=== PATIENT | female | born 1945 | race Caucasian/White ===

== ENCOUNTER 2016-12-15 09:30 | Emergency (ER) | payer MEDICARE, OTHER ==
[~2016-12-15 09:30] MED LIST: CLARITIN10 M2 PO; MIRALAX17 G1 PO; PRILOSEC20 MG PO; SYNTHROID75 MCG PO
[2016-12-15] MEDS ORDERED: BENZONATATE200 M1 PO (09:33)
[2016-12-15] MEDS ORDERED: SYNTHROID50 MC1 PO (09:34)
[2016-12-15] MEDS ORDERED: SYNTHROID125 MC1 PO (10:50)
[2016-12-15] MEDS ORDERED: ZYRTEC10 M7 PO (10:51)
[2016-12-15] MEDS ORDERED: CLARITIN10 M6 PO (10:51)
[2016-12-15 11:32] LABS: BASO % 0.1 % (0-2); EOS % 0.6 % (0-7); HCT-HEMATOCRIT 40.6 % (34.0-49.0); HGB-HEMOGLOBIN 13.4 gm/dl (12.0-15.5); LYMPH % 14.3 % (20-45); MCH (MEAN CORPUSCULAR HGB) 30.2 pg (28.0-32.0); MCV (MEAN CELL VOLUME) 91.6 fl (82.0-96.0); MEAN PLATELET VOLUME 11.1 cmc (9.4-12.4); MONO % 7.8 % (0-12); MONOCYTE ABSOLUTE COUNT 0.6 tho/cmm (0.0-1.2); NEUTROPHIL ABSOLUTE COUNT 5.5 tho/cmm (1.6-8.0); NEUTROPHIL-AUTOMATED 5.5 tho/cmm (1.6-8.0); NEUTROPHILS % 77.2 % (40-80); PLATELET COUNT 254 tho/cmm (150-450); RED BLOOD COUNT 4.43 mil/cmm (4.00-5.20); WHITE BLOOD COUNT 7.2 tho/cmm (4.0-10.0)
[2016-12-15 11:44] LABS: ANION GAP 13 mmol/L (0-20); BLOOD UREA NITROGEN 10 mg/dl (6-24); CARBON DIOXIDE-VENOUS 27 mmol/L (22-32); CHLORIDE 103 mmol/l (96-110); CREATININE 0.74 mg/dl (0.50-1.10); GLUCOSE 97 mg/dL (70-110); POTASSIUM 4.1 mmol/L (3.7-5.1); SODIUM 139 mmol/L (135-145); eGFR VALUE FOR BLACK >90 mL/Min
[2016-12-15] MEDS ORDERED: AUGMENTIN 875-1 EAC2 PO (12:11)
[2016-12-15] MEDS ORDERED: PREDNISONE10 M1 PO (12:11)
== END 2016-12-15 12:20 ==
LOC: EDMED 09:30
PROVIDERS: Emergency Medicine
DX: J40 Bronchitis, not specified as acute or chronic (principal); J32.9 Chronic sinusitis, unspecified; E07.9 Disorder of thyroid, unspecified; Z90.49 Acquired absence of other specified parts of digestive tract; Z90.89 Acquired absence of other organs; Z79.890 Hormone replacement therapy; Z79.899 Other long term (current) drug therapy